=== PATIENT | female | born 1990 | race Caucasian/White ===

== ENCOUNTER → 2018-03-25 13:57 | Outpatient (POV) | payer BC, SELFPAY | DX: Z00.00 Encounter for general adult medical examination without abnormal findings (principal) ==

== ENCOUNTER 2020-02-09 12:41 | Emergency (ER) | payer OTHER, SELFPAY ==
[2020-02-09 12:51] VITALS: BP 177/99; PULSE 91; RESP 20; TEMP 36.6; O2SAT 97; BMI 43.5
--- NOTE | 2020-02-09 12:58 | HMH.EDUTC ---
[facility] – [place] Disposition Clinical Impression: Exposure to COVID-19 virus Disposition: Home, Self-Care Condition on Discharge: Good Instructions: Preventing the Spread of Coronavirus Discharge Instructions Additional Instructions: Drink plenty of fluids. Take tylenol for pain or fever. Return if you begin to have difficulty breathing. Follow up with your regular doctor. GO TO THE ER FOR ANY WORSENING SYMPTOMS Referrals: Getachew Murphy MD [Primary Care Provider] - Time of Disposition: 12:59 Medical Decision Making - Medical Records Medical records reviewed: No: I reviewed the patient's medical records. - Pj Inquiry Pt receiving controlled substance: No Vital Signs: 02/09/20 12:51 02/09/20 13:02 Temperature 98 F 98 F Temperature Source Oral Oral Pulse Rate 91 H Pulse Rate [Radial] 91 H Respiratory Rate 20 20 Blood Pressure 177/99 H Blood Pressure [Right Arm] 177/99 H Blood Pressure Mean [Right Arm] 125 Blood Pressure Source Automatic Cuff Blood Pressure Source [Right Arm] Automatic Cuff Blood Pressure Position Sitting Blood Pressure Position [Right Arm] Sitting 02 Sat by Pulse Oximetry 97 Oxygen Delivery Method Room Air Room Air Orders (Tests/Meds): ORDERS Category Date Time Status Covid-19 Nasal PCR Sendout Doug Routine Lab 02/09/20 12:42 Received [facility] [place] HPI - General Stated complaint: wants covid test Time Seen by Provider: 02/09/20 12:58 Mode of Arrival: Ambulatory Source of Information: Patient Limitations: No Limitations Description of Symptoms (Recalled from Triage Doc. by RN): COVID test no symptoms HEENT Symptoms (Recalled from RN notes): No Resp Symptoms (Recalled from RN notes): No Skin Symptoms (Recalled from RN notes): No MS Symptoms (Recalled from RN notes): No Functional Status (Recalled from RN notes): wnl - History of Present Illness Provider Complaint: She wants to be tested for covid because she is going to be around members of her family soon. She denies any symptoms. - Related Data Home Medications Medication Instructions Recorded Confirmed escitalopram oxalate 20 mg tablet 30 mg PO DAILY tab 10/28/19 01/12/20 omeprazole 20 mg capsule,delayed 20 mg PO DAILY 10/28/19 01/12/20 release Previous Rx's Medication Instructions Recorded fluoxetine 10 mg capsule 10 mg PO DAILY #30 cap 08/27/20 fluconazole 150 mg tablet 150 mg PO Q3D 0 Days #2 tab 01/12/20 norgestimate 0.25 mg-ethinyl 1 tab PO DAILY 30 Days #30 tab 01/12/20 estradiol 35 mcg tablet terconazole 0.8 % vaginal cream 1 appful VAGINAL HS 3 Days #20 g 01/12/20 Allergies Allergy/AdvReac Type Severity Reaction Status Date / Time almond AdvReac Itching of Verified 01/12/20 14:07 lips/mouth - Worker's Comp Is this a Worker's Comp case?: No [facility] History - Hepatitis A Screen Drug use history?: No High risk sexual behaviors?: No History of sexually transmitted infection?: No Currently employed?: No Childcare worker?: No Do you have indoor plumbing?: Yes Do you have electricity?: Yes Attestation statement:: This patient has been screened for Hepatitis A risk factors. I have reviewed the patient's past medical history: Yes Other Surgeries: Yes: Other Amputation: No Fractures: No - Social History Smoking Status: Never smoker Alcohol Intake: never Alcohol Intake Frequency:: holidays/special occasions only Occupational Status: employed Family Hx:: Cancer, Diabetes, Thyroid Disorder ROS Obtained: Yes All systems reviewed & no additional complaints - Constitutional Constitutional: Reports system reviewed and no additional complaints, except as docu - Eyes Eyes: Reports system reviewed and no additional complaints, except as docu - ENT Ears, Nose, Mouth, and Throat: Reports system reviewed and no additional complaints, except as docu - Cardiovascular Cardiovascular: Reports system reviewed and no additional complaints, except as docu - Respirato
[2020-02-09 13:02] VITALS: BP 177/99; PULSE 91; RESP 20; TEMP 36.6; O2SAT 97
[2020-02-10 12:31] LABS: Covid-19 Nasal PCR Sendout Lex Not Detected
== END 2020-02-09 13:03 | disposition home or self-care (01) ==
PROVIDERS: Emergency Provider Nurse Practitioner Family; PCP Family Medicine
DX: Z20.828 Contact with and (suspected) exposure to other viral communicable diseases (principal)
CPT/HCPCS: 99201; U0004

== ENCOUNTER → 2020-04-12 13:45 | Outpatient (POV) | payer OTHER, SELFPAY | DX: Z00.00 Encounter for general adult medical examination without abnormal findings (principal) ==

== ENCOUNTER 2020-12-15 09:07 | Emergency (ER) | payer OTHER, SELFPAY ==
[2020-12-15 09:10] VITALS: BP 146/92; PULSE 88; RESP 19; TEMP 37; O2SAT 98; BMI 44.0
--- NOTE | 2020-12-15 09:32 | HMH.EDUTC ---
[facility] – [place] Disposition Clinical Impression: Sinusitis Qualifiers: Sinusitis location: unspecified location Chronicity: unspecified Qualified Code(s): J32.9 - Chronic sinusitis, unspecified Disposition: Home, Self-Care Condition on Discharge: Good Instructions: Sinusitis, DI for Sinusitis, DI for COVID-19 (Suspected or Confirmed ), Preventing the Spread of Coronavirus Discharge Instructions Additional Instructions: *Monitor Temp, Over the counter Motrin or Tylenol as directed/as needed Tylenol every 4 hours and Motrin every 6 hours (as long as your family doctor has told you that you can take it) for fever or pain. and straight to ER if unable to lower temp less than 101.0 after medication given *Warm salt water gargles may help to soothe the throat *Throat Lozenges *Warm fluids like tea with honey may help to soothe the throat *Sleep elevated *Humidifier/Vaporizer *Flonase 2 sprays in each nostril daily but be aware that it may take 2-3 days before you notice improvement Follow up IMMEDIATELY for new or worsening symptoms or no Noticeable improvement over the next 48-72 hours. 911 for difficulty breathing or swallowing You were tested for today for COVID19 your test result should be back in the next 24-48 hours, you was given handout instructions for checking your results on the [facility] portal to view your results if you have trouble logging on you may call the [facility] You was given a handout with instructions for Self Quarantine and Self isolation for while you wait on test results and what to do if they are positive If you are positive the Health Dept will be contacting you also Make sure to take your Vitamins Vit. C Vit D and Zinc if you can take them Prescriptions: Amoxicillin/Potassium Clav [Augmentin 875-125 Tablet] 1 tab PO Q12H 7 Days #14 tab Transmission Status: Pending to [facility] predniSONE [Deltasone 10mg tablet] 10 mg PO BID 5 Days #10 tab Transmission Status: Pending to [facility] Referrals: Getachew Murphy MD [Primary Care Provider] - As needed Forms: Work/School Release Time of Disposition: 09:43 Medical Decision Making - Pj Inquiry Pt receiving controlled substance: No Pj was queried for this patient: No Vital Signs: 12/15/20 09:10 Temperature 98.6 F Temperature Source Oral Pulse Rate [Right Brachial] 88 Respiratory Rate 19 Blood Pressure [Right Arm] 146/92 H Blood Pressure Mean [Right Arm] 110 Blood Pressure Source [Right Arm] Automatic Cuff Blood Pressure Position [Right Arm] Sitting 02 Sat by Pulse Oximetry 98 Oxygen Delivery Method Room Air - Lab Data Lab results reviewed: Yes: I reviewed the patient's lab results. Orders (Tests/Meds): ORDERS Category Date Time Status Covid-19 Nasal PCR ([facility] [place]) Routine Lab 12/15/20 09:16 Ordered [facility] [place] HPI - General Stated complaint: possible sinus inf/covid exposure Time Seen by Provider: 12/15/20 09:33 Mode of Arrival: Ambulatory Source of Information: Patient Limitations: No Limitations Description of Symptoms (Recalled from Triage Doc. by RN): PATIENT C/O BODY ACHES, HEADACHE, AND SINUS PRESSURE LAST NIGHT. EXPOSED TO COVID 15 DAYS AGO HEENT Symptoms (Recalled from RN notes): Yes Resp Symptoms (Recalled from RN notes): No Skin Symptoms (Recalled from RN notes): No MS Symptoms (Recalled from RN notes): No Functional Status (Recalled from RN notes): WNL - History of Present Illness Provider Complaint: Patient states that she started having sinus congestion over a week ago and has continued to get worse over the last few days States that she has been having sinus pain and pressure along with feeling full in her head with body aches and scratchy throat States that she was was exposed to COVID about 15 days ago - Related Data Home Medications Medication Instructions Recorded Confirmed Escitalopram Oxalate [Lexapro] 20 mg PO DAILY 12/15/20 12/15/20 Fluoxetine HCl [Prozac 10mg 10 mg PO DAILY 12/15/20
[2020-12-15 09:52] VITALS: BP 146/92; PULSE 88; RESP 19; TEMP 37; O2SAT 98
[2020-12-15 10:02] LABS: UTC Pregnancy Test, Urine Negative (Negative)
== END 2020-12-15 09:56 | disposition home or self-care (01) ==
PROVIDERS: Emergency Provider Nurse Practitioner; PCP Family Medicine
DX: U07.1 COVID-19 (principal); J32.9 Chronic sinusitis, unspecified
CPT/HCPCS: 81025; 99203; C9803; G0463; U0003; U0005

== ENCOUNTER 2020-12-21 20:01 | Emergency (ER) | payer OTHER, SELFPAY ==
[2020-12-21 20:02] VITALS: BP 153/98; PULSE 111; RESP 21; TEMP 36.9; O2SAT 96; BMI 45.7
--- NOTE | 2020-12-21 20:18 | XR_ITS ---
PROCEDURE INFORMATION: Exam: XR Chest Exam date and time: 12/21/2020 8:18 PM Age: 30 years old Clinical indication: Shortness of breath; Additional info: Covid positive; States she feels a rattle in her c TECHNIQUE: Imaging protocol: XR of the chest. Views: 2 views. COMPARISON: No relevant prior studies available. FINDINGS: Lungs: There are ill-defined amorphous infiltrates noted within both mid and lower lung zones. No evidence of pulmonary vascular congestion. Pulmonary volumes remain normal. Pleural spaces: Unremarkable. No pleural effusion. No pneumothorax. Heart/Mediastinum: Unremarkable. No cardiomegaly. Bones/joints: Unremarkable. IMPRESSION: There are subtle patchy interstitial infiltrates noted within both mid and lower lung zones. No evidence of pulmonary vascular congestion. Normal pulmonary volumes. No pleural effusions.
--- NOTE | 2020-12-21 20:20 | HMH.EDUTC ---
[facility] [place] Disposition Clinical Impression: COVID-19 Disposition: Home, Self-Care Condition on Discharge: Good Instructions: DI for COVID-19 (Suspected or Confirmed ) Additional Instructions: covid swab was sent to lab, call later today for results. self isolate until test results are known to be negative No sign of a bacterial infection. Likely viral. Viruses can take 7-14 days to run their course. Nasal saline and bulb syringe or nose Kym to remove nasal drainage to help with nasal congestion. Hard to eat, drink, sleep with nasal congestion so important to keep this cleaned out. Monitor temp. Tylenol or Motrin as needed for pain or fever Encourage fluids, water, Gatorade, Powerade, Pedialyte if infant/toddler/child Warm salt water gargles Warm fluids Sore throat lozenges Sleep elevated Humidifier/vaporizer Follow-up immediately for new or worsening symptoms or no noticeable improvement over the next 48-72 hours. finish steroids and start zpak Prescriptions: Azithromycin [Zithromax 250mg tab] 250 mg PO DIRECTED #6 tab Transmission Status: P[facility] Referrals: Getachew Murphy MD [Primary Care Provider] - Time of Disposition: 20:42 Medical Decision Making - Pj Inquiry Pt receiving controlled substance: No Vital Signs: 12/21/20 20:02 Temperature 98.5 F Temperature Source Oral Pulse Rate [Left Radial] 111 H Respiratory Rate 21 Blood Pressure [Left Arm] 153/98 H Blood Pressure Mean [Left Arm] 116 Blood Pressure Source [Left Arm] Automatic Cuff Blood Pressure Position [Left Arm] Sitting 02 Sat by Pulse Oximetry 96 Oxygen Delivery Method Room Air Orders (Tests/Meds): ORDERS Category Date Time Status XR chest 2V Stat Exams 12/21/20 20:18 Taken [facility] [place] HPI - General Chief complaint: Urgent [facility] Stated complaint: rattle in chest Time Seen by Provider: 12/21/20 20:20 Mode of Arrival: Ambulatory Source of Information: Patient Limitations: No Limitations Description of Symptoms (Recalled from Triage Doc. by RN): Pt advises that she tested positive for COVID on Friday and is now feeling a rattle in my chest and want to get it checked out . HEENT Symptoms (Recalled from RN notes): No Resp Symptoms (Recalled from RN notes): Yes (covid positive, feeling a rattle in chest) Skin Symptoms (Recalled from RN notes): No MS Symptoms (Recalled from RN notes): No Functional Status (Recalled from RN notes): n/a - History of Present Illness Provider Complaint: 30 yr old female presnets for rattling in chest. pt states she tested positive for covid on friday and today noticed she had a rattling noise in chest. denies soa, or pain - Related Data Home Medications Medication Instructions Recorded Confirmed Escitalopram Oxalate [Lexapro] 20 mg PO DAILY 12/15/20 12/15/20 Fluoxetine HCl [Prozac 10mg 10 mg PO DAILY 12/15/20 12/15/20 Capsule] norgestimate-ethinyl estradioL 1 each PO DAILY 12/15/20 12/15/20 [Hilaria 0.25-0.035 mg Tablet] Previous Rx's Medication Instructions Recorded Amoxicillin/Potassium Clav 1 tab PO Q12H 7 Days #14 tab 12/15/20 [Augmentin 875-125 Tablet] predniSONE [Deltasone 10mg tablet] 10 mg PO BID 5 Days #10 tab 12/15/20 Azithromycin [Zithromax 250mg 250 mg PO DIRECTED #6 tab 12/21/20 tab] Allergies Allergy/AdvReac Type Severity Reaction Status Date / Time almond AdvReac Itching of Verified 01/12/20 14:07 lips/mouth - Worker's Comp Is this a Worker's Comp case?: No H History - Hepatitis A Screen Drug use history?: No High risk sexual behaviors?: No History of sexually transmitted infection?: No Currently employed?: No Childcare worker?: No Do you have indoor plumbing?: Yes Do you have electricity?: Yes Attestation statement:: This patient has been screened for Hepatitis A risk factors. I have reviewed the patient's past medical history: Yes Other Surgeries: Yes: Other Amputation: No Fra
[2020-12-21 20:49] VITALS: BP 153/98; PULSE 111; RESP 21; TEMP 36.9; O2SAT 96
== END 2020-12-21 20:51 | disposition home or self-care (01) ==
PROVIDERS: Emergency Provider Nurse Practitioner Family; PCP Family Medicine
DX: U07.1 COVID-19 (principal)
CPT/HCPCS: 71046; 99202; G0463

== ENCOUNTER 2021-01-07 10:05 | Emergency (ER) | payer OTHER, SELFPAY ==
[2021-01-07 11:32] VITALS: BP 146/89; PULSE 96; RESP 19; TEMP 37; O2SAT 99; BMI 45.7
[2021-01-07 12:02] LABS: Adenovirus,PCR Not Detected (NotDetected); Bordetella Pertussis Not Detected (NotDetected); Chlamydophila Pneumoniae, PCR Not Detected (NotDetected); Coronavirus 19, PCR Not Detected (NotDetected); Coronavirus 229E Not Detected (NotDetected); Coronavirus NL63 Not Detected (NotDetected); Coronavirus OC43 Not Detected (NotDetected); Coronovirus HKU1,PCR Not Detected (NotDetected); Human Metapneumovirus Not Detected (NotDetected); Influenza A, PCR Not Detected (NotDetected); Influenza AH1, 2009 Not Detected (NotDetected); Influenza AH1, PCR Not Detected (NotDetected); Influenza AH3,PCR Not Detected (NotDetected); Influenza B, PCR Not Detected (NotDetected); Mycoplasma Pneumoniae, PCR Not Detected (NotDetected); Parainfluenza 1, PCR Not Detected (NotDetected); Parainfluenza 2, PCR Not Detected (NotDetected); Parainfluenza 3, PCR Not Detected (NotDetected); Parainfluenza 4, PCR Not Detected (NotDetected); Respiratory Syncytial Virus Not Detected (NotDetected); Rhinovirus/Enterovirus Not Detected (NotDetected)
--- NOTE | 2021-01-07 12:04 | HMH.EDUTC ---
[facility] [place] Clinical Impression: Viral syndrome, Skin rash, Impetigo Disposition: Home, Self-Care Condition on Discharge: Good Instructions: DI for Impetigo, DI for Viral Syndrome, Methylprednisolone Additional Instructions: Stop the Amoxicillin. Start puting the mupirocin (bactroban) ointment on the place on your foot. Take the steroids as directed. Don't start them until tomorrow. Follow up with your primary care doctor. GO TO THE ER FOR ANY WORSENING SYMPTOMS OR CONCERNS Prescriptions: Brompheniramine/Pseudoephed/Dm [Bromfed Dm Cough Syrup] 5 ml PO Q6HP PRN #240 ml PRN Reason: Cough Transmission Status: Received by [facility] # Mupirocin [Bactroban 2% Ointment 22gm tube] 1 applicatio TP TID 7 Days #1 gm Transmission Status: Received by [facility] # methylPREDNISolone [Medrol] 4 mg PO DIRECTED 6 Days #21 packet Transmission Status: Received by [facility] # Azithromycin [Z-Abhilash 250mg Tab*] 250 mg PO UD DOSE PK #6 tab Transmission Status: Received by [facility] # Referrals: Getachew Murphy MD [Primary Care Provider] - Forms: Work/School Release Time of Disposition: 12:40 Medical Decision Making - Medical Records Medical records reviewed: No: I reviewed the patient's medical records. - Pj Inquiry Pt receiving controlled substance: No Vital Signs: 01/07/21 11:32 01/07/21 12:59 Temperature 98.6 F 98.6 F Temperature Source Oral Pulse Rate 96 H Pulse Rate [Left] 96 H Respiratory Rate 19 19 Blood Pressure 146/89 H Blood Pressure [Right Arm] 146/89 H Blood Pressure Mean [Right Arm] 108 02 Sat by Pulse Oximetry 99 - Lab Data Lab results reviewed: Yes: I reviewed the patient's lab results. Lab Results 01/07/21 12:00: Chlamy pneumoniae PCR Not detected, Adenovirus (PCR) Not detected, B. pertussis DNA (PCR) Not detected, Coronavirus OC43 (PCR) Not detected, Coronavirus HKU1 (PCR) Not detected, Coronavirus 229E (PCR) Not detected, SARS-CoV-2 (PCR) Not detected, Coronavirus NL63 (PCR) Not detected, Human Metapneumovir PCR Not detected, Influenza A (H1) PCR Not detected, Influ A (H1N1/09) PCR Not detected, Influenza A (H3) PCR Not detected, Influenza Type A (PCR) Not detected, Influenza Type B (PCR) Not detected, M. pneumoniae (PCR) Not detected, Parainfluenza 1 (PCR) Not detected, Parainfluenza 2 (PCR) Not detected, Parainfluenza 3 (PCR) Not detected, Parainfluenza 4 (PCR) Not detected, RSV (PCR) Not detected, Entero/Rhino (PCR) Not detected Orders (Tests/Meds): ED MEDICATIONS Discontinued Medications Generic Name Dose Route Start Last Admin Trade Name Abiodun PRN Reason Stop Dose Admin Methylprednisolone Sodium Succinate 125 mg 01/07/21 12:12 01/07/21 12:17 Methylprednisolone Sod Succ 125mg Vial IM 01/07/21 12:13 125 mg ONCE ONE Administration [facility] [place] - General Stated complaint: rash Time Seen by Provider: 01/07/21 12:05 Mode of Arrival: Ambulatory Source of Information: Patient Limitations: No Limitations Description of Symptoms (Recalled from Triage Doc. by RN): pt c/o stomach ache, nausea, congused, and runny nose HEENT Symptoms (Recalled from RN notes): Yes (nasal drainage) Resp Symptoms (Recalled from RN notes): No Skin Symptoms (Recalled from RN notes): No MS Symptoms (Recalled from RN notes): No Functional Status (Recalled from RN notes): confusion - History of Present Illness Provider Complaint: She c/o havign a rash basically all over her body since last night. She started running a fever yesterday and she has been feeling bad for a couple of days. She had covid-19 around 3 weeks ago, but she states that she was completely better from that for the past 10 days at least. She denies any shortness of breath. She does have a dry cough. - Related Data Home Medications Medication Instructions Recorded Confirmed Escitalopram Oxalate [Lexapro] 20 mg PO DAILY 12/15/20
[2021-01-07 12:59] VITALS: BP 146/89; PULSE 96; RESP 19; TEMP 37
== END 2021-01-07 13:04 | disposition home or self-care (01) ==
PROVIDERS: Emergency Provider Nurse Practitioner Family; PCP Family Medicine
DX: L01.00 Impetigo, unspecified (principal); B34.9 Viral infection, unspecified; Z20.822 Contact with and (suspected) exposure to COVID-19
CPT/HCPCS: 87581; 87632; 87798; 96372; 99202; C9803; G0463; U0003; U0005

== ENCOUNTER 2021-01-10 20:57 | Observation (INO) | payer OTHER, SELFPAY ==
[2021-01-10 20:57] VITALS: BP 163/113; PULSE 110; RESP 18; TEMP 37.1; O2SAT 96; BMI 41.5
[2021-01-10 21:04] VITALS: BP 163/113; PULSE 105; O2SAT 96
[2021-01-10 22:08] LABS: Alanine Aminotransferase 116 U/L (12-78); Albumin Level 3.9 g/dl (3.5-5.0); Albumin/Globulin Ratio 1.2 (1.1-1.8); Alkaline Phosphatase 63 U/L (38-126); Anion Gap 10.8 mEq/L (5-15); Aspartate Amino Transferase 76 U/L (14-36); Bilirubin,Total 0.5 mg/dl (0.2-1.3); Blood Urea Nitrogen 6 mg/dl (7-17); Calcium 9.3 mg/dl (8.4-10.2); Carbon Dioxide 25 mmol/L (22.0-30.0); Chloride 107 mmol/L (98-107); Creatinine Clearance Estimated 183 mL/min (50-200); Estimated Glomerular Filt Rate 186 ml/min (>60); GFR (African American) 225 ML/MIN (>60); Globulin 3.3 g/dL (1.3-3.2); Glucose 130 mg/dl (74-100); Potassium 3.8 mmoL/L (3.5-5.1); Sodium 139 mmol/L (136-145); Total Protein,Serum 7.2 g/dl (6.3-8.2)
[2021-01-10 22:13] LABS: C-Reactive Protein 84.4 mg/L (0-4)
[2021-01-10 22:20] LABS: Basophils % 1.2 % (0.1-2.0); Eosinophils % 2.4 % (0.1-12.0); Hematocrit 40.2 % (37.0-47.0); Lymphocytes # 0.6 K/mm3 (0.7-4.5); Lymphocytes % 40.5 % (10-50); Mean Corpuscular HGB Conc 32.3 g/dL (31.8-35.4); Mean Corpuscular Hemoglobin 28.2 pg (27.0-31.2); Mean Corpuscular Volume 87.4 fl (81-99); Mean Platelet Volume 9.7 fl (7.4-10.4); Monocytes # 0.1 K/mm3 (0.1-1.0); Monocytes % 3.8 % (1.7-9.3); Neutrophils # 0.8 K/mm3 (1.8-7.8); Neutrophils % 52.1 % (37.0-80.0); Red Blood Count 4.59 M/mm3 (4.20-5.40); Red Cell Distribution Width 15.1 % (11.5-17.5); White Blood Count 1.5 K/mm3 (4.8-10.8)
[2021-01-10 22:27] LABS: Platelet Count 41 K/mm3 (142-424)
--- NOTE | 2021-01-10 22:38 | XR_ITS ---
PROCEDURE INFORMATION: Exam: XR Chest Exam date and time: 01/10/2021 10:38 PM Age: 30 years old Clinical indication: Patient HX: Congestion, rash, recent strep, HX of covid TECHNIQUE: Imaging protocol: XR of the chest. Views: 2 views. COMPARISON: CR XR CHEST 2V 12/21/2020 8:14 PM FINDINGS: Lungs: Patchy left lung opacities appear improved compared to prior study. Patchy right lung opacities are unchanged to mildly improved. Pleural spaces: Unremarkable. No pleural effusion. No pneumothorax. Heart/Mediastinum: Unremarkable. No cardiomegaly. Bones/joints: Unremarkable. IMPRESSION: Patchy left lung opacities appear improved compared to prior study. Patchy right lung opacities are unchanged to mildly improved.
[2021-01-10 22:40] LABS: Erythrocyte Sedimentation Rate 61 mm/hr (0-20)
--- NOTE | 2021-01-10 23:07 | HMH.EDGENADL ---
ED Disposition Clinical Impression: Thrombocytopenia Neutropenia Qualifiers: Neutropenia type: unspecified Qualified Code(s): D70.9 - Neutropenia, unspecified Disposition: Admitted as Observation Condition on Discharge: Good - Critical Care Critical Care Time: No Attestation: On 01/10/21, the high probability of a clinically significant, sudden or life threatening deterioration of the following system(s) required my full and direct attention, intervention and personal management. The time I documented below is in addition to time spent performing reported procedures but includes the following listed in this critical care notation. Medical Decision Making - Medical Records Medical records reviewed: Yes: I reviewed the patient's medical records. - Pj Inquiry Pt receiving controlled substance: No Vital Signs: 01/10/21 20:57 01/10/21 21:04 01/10/21 23:31 Temperature 98.7 F Temperature Source Oral Pulse Rate 105 H 96 H Pulse Rate [Apical] 110 H Respiratory Rate 18 Blood Pressure 163/113 H 139/77 Blood Pressure [Right Arm] 163/113 H Blood Pressure Mean [Right Arm] 129 Blood Pressure Source [Right Arm] Automatic Cuff Blood Pressure Position [Right Arm] Sitting 02 Sat by Pulse Oximetry 96 96 97 Oxygen Delivery Method Room Air Room Air Room Air 01/11/21 00:01 01/11/21 00:31 Temperature Temperature Source Pulse Rate 95 H 99 H Pulse Rate [Apical] Respiratory Rate Blood Pressure 138/85 138/88 Blood Pressure [Right Arm] Blood Pressure Mean [Right Arm] Blood Pressure Source [Right Arm] Blood Pressure Position [Right Arm] 02 Sat by Pulse Oximetry 95 96 Oxygen Delivery Method Room Air Room Air - Lab Data Lab results reviewed: Yes: I reviewed the patient's lab results. Lab Results 01/10/21 21:27: Monoscreen Negative 01/10/21 21:27: Procalcitonin 0.098 01/10/21 21:27: PT 10.8, INR 0.95, APTT 23.3 01/10/21 21:47: WBC 1.5 L*, RBC 4.59, Hgb 13.0, Hct 40.2, MCV 87.4, MCH 28.2, MCHC 32.3, RDW 15.1, Plt Count 41 L*, MPV 9.7, Neut % (Auto) 52.1, Lymph % (Auto) 40.5, Granite % (Auto) 3.8, Eos % (Auto) 2.4, Baso % (Auto) 1.2, Neut # (Auto) 0.8 L*, Lymph # (Auto) 0.6 L, Granite # (Auto) 0.1, Eos # (Auto) 0.0, Baso # (Auto) 0.0, ESR 61 H 01/10/21 21:47: Sodium 139, Potassium 3.8, Chloride 107, Carbon Dioxide 25, Anion Gap 10.8, BUN 6 L, Creatinine 0.40 L, Estimated Creat Clear 183, Estimated GFR 186, Est GFR ( Amer) 225, Glucose 130 H, Calcium 9.3, Total Bilirubin 0.5, AST 76 H, ALT 116 H, Alkaline Phosphatase 63, C-Reactive Protein 84.4 H, Total Protein 7.2, Albumin 3.9, Globulin 3.3 H, Albumin/Globulin Ratio 1.2 01/10/21 23:24: Urine Color Red, Urine Appearance Cloudy, Urine pH 6.5, Ur Specific Morse 1.015, Urine Protein 1+, Urine Glucose (UA) Negative, Urine Ketones Negative, Urine Blood 3+, Urine Nitrate Negative, Urine Bilirubin Negative, Urine Urobilinogen 0.2, Ur Leukocyte Esterase Negative, Urine RBC Tntc, Urine WBC 10-20, Ur Squamous Epith Cells None, Urine Bacteria 1+ 01/10/21 23:43: Group A Strep Rapid Negative 01/10/21 23:43: SARS-CoV-2 (PCR) Not detected, Influenza A Untype (PCR) Not detected, Influenza Type B (PCR) Not detected Result diagrams: 01/10/21 21:47 01/10/21 21:47 Orders (Tests/Meds): ED MEDICATIONS Generic Name Dose Route Start Last Admin Trade Name Freq PRN Reason Stop Dose Admin Sodium Chloride 1,000 mls @ 999 mls/hr 01/10/21 21:45 01/10/21 22:10 Sod Chlor 0.9% 1000ml Bag IV 01/10/21 22:45 999 mls/hr .Q1H1M LYDIA Administration Sodium Chloride 8 ml 01/10/21 21:37 Sodium Chloride 0.9% 10ml Vial IV 02/09/21 21:36 NEEDED PRN dilute pepcid Discontinued Medications Generic Name Dose Route Start Last Admin Trade Name Freq PRN Reason Stop Dose Admin Diphenhydramine HCl 50 mg 01/10/21 21:35 01/10/21 22:09 Diphenhydramine 50mg/Ml Vial IV 01/10/21 21:36 50 mg ONCE ONE Administration Famotidine 20 mg
[2021-01-10 23:28] LABS: Microscopic, Urine URINE MICROSCOPIC (MICROSCOPIC)
[2021-01-10 23:30] LABS: Appearance,Urine CLOUDY (Clear); Bilirubin,Urine Negative (Negative); Blood, Urine 3+ (Negative); Color,Urine RED (Yellow); Glucose,Urine (UA) Negative (Negative); Ketones,Urine Negative (Negative); Leukocyte Esterase,Urine Negative (Negative); Nitrate,Urine Negative (Negative); PH,Urine 6.5 (5.0-8.5); Protein,Urine 1+ (Negative); Specific Gravity, Urine 1.015 (1.005-1.030); Urobilinogen,Urine 0.2 EU/dl (0.2)
[2021-01-10 23:31] VITALS: BP 139/77; PULSE 96; O2SAT 97
[2021-01-10 23:42] LABS: Bacteria,Urine 1+ /lpf; RBC,Urine TNTC #/hpf (0-3)
[2021-01-10 23:46] LABS: Coronavirus 19, PCR Not Detected (NotDetected); Influenza A, PCR Not Detected (NotDetected); Influenza B, PCR Not Detected (NotDetected)
[2021-01-10 23:54] LABS: Activated Partial Thrombo Time 23.3 seconds (22.8-30.6); INR 0.95 (0.9-1.1); Prothrombin Time 10.8 seconds (10.1-12.5)
[2021-01-11] VITALS (7 sets, daily range): BP systolic 125–150; BP diastolic 49–90; PULSE 76–99; RESP 17–22; TEMP 36.7–37; O2SAT 95–98; BMI 46.0
[2021-01-11 00:05] LABS: Monoscreen (Rapid) Negative (Negative)
[2021-01-11 00:07] LABS: Strep Scrn Group A (Rapid) Negative (Negative)
[2021-01-11 00:08] LABS: Procalcitonin 0.098 ng/mL (0.0-2.0)
--- NOTE | 2021-01-11 01:11 | PC.NURSE ---
brennon on phone with dr knapp @ this time
--- NOTE | 2021-01-11 02:38 | PC.NURSE ---
Patient is resting in bed. Report called to Jessie Monreal. rn
--- NOTE | 2021-01-11 03:14 | PC.NURSE ---
PT ARRIVED TO FLOOR VIA W/C FROM ED W/STAFF AT [id number]
--- NOTE | 2021-01-11 04:19 | PC.NURSE ---
Notified MD of Pt meeting sepsis criteria. No new orders.
--- NOTE | 2021-01-11 05:27 | PC.NURSE ---
UPON ASSESSMENT, PT NOTED TO HAVE RASH TO MOST HER BODY COVERING BLE, ARMS, CHEST, BACK OF SHOULDERS AND ON SOME OF HER BACK. pT STATES THAT SHE HAS BEEN TREATED FOR STREP AND HAS BEEN ON ZPACK AND STEROIDS. SHE ALSO C/O NECK DISCOMFORT. sHE HAS A SMALL WOUND ON HER INNER LEFT FOOT. VSS AT THIS TIME. MEDICATIONS ADMINISTERED PER MAY. WILL CONTINUE TO MONITOR.
[2021-01-11 06:13] LABS: Basophils % 0.5 % (0.1-2.0); Eosinophils % 0.7 % (0.1-12.0); Hematocrit 38.7 % (37.0-47.0); Hemoglobin 12.4 g/dL (12.2-16.2); Lymphocytes # 0.7 K/mm3 (0.7-4.5); Lymphocytes % 41.8 % (10-50); Mean Corpuscular Hemoglobin 28.1 pg (27.0-31.2); Mean Corpuscular Volume 88.1 fl (81-99); Mean Platelet Volume 10.6 fl (7.4-10.4); Monocytes % 2.1 % (1.7-9.3); Neutrophils # 0.9 K/mm3 (1.8-7.8); Red Blood Count 4.39 M/mm3 (4.20-5.40); Red Cell Distribution Width 15.2 % (11.5-17.5); White Blood Count 1.6 K/mm3 (4.8-10.8)
[2021-01-11 06:28] LABS: Platelet Count 46 K/mm3 (142-424)
--- NOTE | 2021-01-11 06:38 | PC.WOUNDNOTE ---
left inner foot
[2021-01-11 07:07] LABS: Alanine Aminotransferase 135 U/L (12-78); Albumin Level 3.6 g/dl (3.5-5.0); Albumin/Globulin Ratio 1.1 (1.1-1.8); Alkaline Phosphatase 51 U/L (38-126); Anion Gap 8.4 mEq/L (5-15); Aspartate Amino Transferase 93 U/L (14-36); Bilirubin,Total 0.3 mg/dl (0.2-1.3); Blood Urea Nitrogen 6 mg/dl (7-17); Calcium 8.7 mg/dl (8.4-10.2); Carbon Dioxide 27 mmol/L (22.0-30.0); Chloride 108 mmol/L (98-107); Creatinine Clearance Estimated 161 mL/min (50-200); Estimated Glomerular Filt Rate 186 ml/min (>60); GFR (African American) 225 ML/MIN (>60); Globulin 3.4 g/dL (1.3-3.2); Glucose 176 mg/dl (74-100); Potassium 4.4 mmoL/L (3.5-5.1); Sodium 139 mmol/L (136-145)
--- NOTE | 2021-01-11 07:32 | HMH.PHAVTE ---
[facility] Pharmacy VTE Monitoring - Patient Demographics Admission date: 01/10/21 Report Date: 01/11/21 Time: 07:32 Allergies/Adverse Reactions: Patient Allergies amoxicillin Allergy (Verified 01/10/21 21:17) almond Adverse Reaction (Verified 01/12/20 14:07) Itching of lips/mouth Height: 1.57 m Weight: 114.305 kg Patient Problems: Current Active Problems Thrombocytopenia (Acute) Neutropenia (Acute) - VTE Risk Labs: VTE Related Lab Results Hgb 12.4 g/dL (12.2-16.2) 01/11/21 05:47 Hct 38.7 % (37.0-47.0) 01/11/21 05:47 Plt Count 46 K/mm3 (142-424) L* 01/11/21 05:47 PT 10.8 seconds (10.1-12.5) 01/10/21 21:27 INR 0.95 (0.9-1.1) 01/10/21 21:27 APTT 23.3 seconds (22.8-30.6) 01/10/21 21:27 BUN 6 mg/dl (7-17) L 01/11/21 05:47 Creatinine 0.40 mg/dl (0.52-1.04) L 01/11/21 05:47 Estimated Creat Clear 161 mL/min (50-200) 01/11/21 05:47 Was VTE Risk Assessment Performed: Yes VTE Score: 2 VTE Risk Level: Very Low Risk - Prophylaxis VTE Prophylaxis Ordered?: Yes Types of VTE Prophylaxis: TEDS Knee High Location of Applied Device: Bilateral Lower Extremeties
--- NOTE | 2021-01-11 07:51 | HMH.PHAINT ---
CLARIFIED HOME MEDICATION LIST USING LIST FROM [facility]
--- NOTE | 2021-01-11 09:16 | HMH.HP ---
*Admission Date: 01/10/21 *Chief complaint: rash, fever *History of present illness: Ms. Rodrigues is a 30-year-old female with a history of anxiety, GERD, and shingles. She presented to the urgent treatment center on 12/15/2020 with symptoms of a sinus infection. She was given Augmentin and prednisone to take pending her Covid test. The Covid test returned positive. She presented back to the emergency room on 12/21/2020 because she was scared she had a pneumonia. She had a chest x-ray showing subtle patchy interstitial infiltrates within both mid and lower lung zones. She was then placed on Zithromax. She presented back to the emergency room on 01/07/2021 after developing a skin rash all over her body. She had begun running a fever and had not felt well for a few days. She felt she was completely better from Covid and this was something different. The physician felt she may be having an allergic reaction to Augmentin, therefore this was discontinued. She was started on Bactroban ointment for a blister that had developed on her foot and was told to continue her steroids. She had an upper respiratory panel which was all negative. She then presented back to the emergency room on 01/10/2021. She had developed a fever and the rash had spread to her arms and her chest. She was also having sinus and chest congestion. The patient's lab work revealed a low platelet count and a low white blood cell count. Her reticulocyte count was normal. The ER physician felt this could be post viral versus ITP. She was admitted for further evaluation and treatment. [facility] History I have reviewed the patient's past medical history: Yes Medical History: Reports:: Anxiety, Gastroesophageal Reflux Disease(GERD) Denies:: Cancer, Diabetes Mellitus Type 1, Diabetes Mellitus Type 2, MRSA *Have you ever received a pneumonia vaccine?: No *Have you received a flu vaccine this season?: Yes Other Surgeries: Yes: Other (tooth extraction, left eye) Amputation: No Fractures: No - *Social History Last grade of school completed: Some college Smoking Status: Never smoker Alcohol Intake: never Alcohol Intake Frequency:: holidays/special occasions only *Occupational Status:: employed Housing: house Household Members: family *Travel in the last 8 weeks: None Family Hx:: Anemia, Asthma, Cancer, Coronary Artery Disease, Diabetes, Heart Attack, Hyperlipidemia, Hypertension, Thyroid Disorder Review of Systems - Constitutional Reports fever(s), Reports weakness, Denies chills - Eyes Denies blurry vision, Denies double vision - ENT Reports nasal congestion, Reports sore throat - *Cardiovascular Denies chest pain, Denies shortness of breath - *Respiratory Reports chest congestion, Reports cough - *Gastrointestinal Reports nausea, Reports vomiting, Denies abdominal pain, Denies loose stools - *Genitourinary Denies difficulty urinating, Denies painful urination - *Musculoskeletal Denies joint pain - Integumentary/Breasts Reports rash - *Neurologic Reports weakness, Denies headache(s), Denies seizure-like activity, Denies dizziness Meds Home Medications Medication Instructions Recorded Confirmed Type Escitalopram Oxalate [Lexapro] 30 mg PO DAILY 12/15/20 01/11/21 History norgestimate-ethinyl estradioL 1 each PO DAILY 12/15/20 01/11/21 History [Hilaria 0.25-0.035 mg Tablet] Famotidine [Pepcid] 20 mg PO DAILY 01/11/21 01/11/21 History Mupirocin [Bactroban 2% Ointment 1 applicatio TP TID 01/11/21 01/11/21 History 22gm tube] Allergies Allergy/AdvReac Type Severity Reaction Status Date / Time amoxicillin Allergy Verified 01/10/21 21:17 almond AdvReac Itching of Verified 01/12/20 14:07 lips/mouth Exam Vital signs and Labs for Last 24 Hours: Temp Pulse Resp BP Pulse Ox 98.4 F 90 19 135/71 96 01/11/21 03:25 01/11/21 03:25 01/11/21 03:25 01/11/21 03:25 01/11/21 00:31 Laboratory Results - last 24 hr 01/10/21 21:27
--- NOTE | 2021-01-11 10:01 | HMH.ACPN2 ---
Internal Medicine - PN: Subj *Date: 01/11/21 *Time: 10:01 Interval history: Description of Symptoms (Recalled from ER Triage Doc. by RN): Patient states that Friday she had a fever. Friday she was seen at the [facility] when she developed a rash, she was treated for strep and given a zpack, a steroid shot and a topical cream for a wound on her right foot that she states looked infected. Patient states that currently the rash has spread to both of her legs and her arms and chest. States she also has sinus congestion, chest congestion, jaw pain with chewing, joint pain, as well as neck pain and feels flushed. Asks about resuming anxiety medications. She is on escitalopram AND fluoxetine. I will continue only the fluoxetine. Laboratory Tests 01/10/21 01/11/21 01/11/21 21:47 00:00 05:47 WBC 1.5 L* 1.6 L* Plt Count 41 L* 46 L* Neut # (Auto) 0.8 L* 0.9 L* Retic Count (auto) 1.0 Exam Vital signs and Labs for Last 24 Hours: Temp Pulse Resp BP Pulse Ox 98.4 F 90 19 135/71 96 01/11/21 03:25 01/11/21 03:25 01/11/21 03:25 01/11/21 03:25 01/11/21 00:31 Laboratory Results - last 24 hr 01/10/21 21:27: Monoscreen Negative 01/10/21 21:27: Procalcitonin 0.098 01/10/21 21:27: PT 10.8, INR 0.95, APTT 23.3 01/10/21 21:47: WBC 1.5 L*, RBC 4.59, Hgb 13.0, Hct 40.2, MCV 87.4, MCH 28.2, MCHC 32.3, RDW 15.1, Plt Count 41 L*, MPV 9.7, Neut % (Auto) 52.1, Lymph % (Auto) 40.5, [place] % (Auto) 3.8, Eos % (Auto) 2.4, Baso % (Auto) 1.2, Neut # (Auto) 0.8 L*, Lymph # (Auto) 0.6 L, [place] # (Auto) 0.1, Eos # (Auto) 0.0, Baso # (Auto) 0.0, ESR 61 H 01/10/21 21:47: Sodium 139, Potassium 3.8, Chloride 107, Carbon Dioxide 25, Anion Gap 10.8, BUN 6 L, Creatinine 0.40 L, Estimated Creat Clear 183, Estimated GFR 186, Est GFR ( Amer) 225, Glucose 130 H, Calcium 9.3, Total Bilirubin 0.5, AST 76 H, ALT 116 H, Alkaline Phosphatase 63, C-Reactive Protein 84.4 H, Total Protein 7.2, Albumin 3.9, Globulin 3.3 H, Albumin/Globulin Ratio 1.2 01/10/21 23:24: Urine Color Red, Urine Appearance Cloudy, Urine pH 6.5, Ur Specific [place] 1.015, Urine Protein 1+, Urine Glucose (UA) Negative, Urine Ketones Negative, Urine Blood 3+, Urine Nitrate Negative, Urine Bilirubin Negative, Urine Urobilinogen 0.2, Ur Leukocyte Esterase Negative, Urine RBC Tntc, Urine WBC 10-20, Ur Squamous Epith Cells None, Urine Bacteria 1+ 01/10/21 23:43: Group A Strep Rapid Negative 01/10/21 23:43: SARS-CoV-2 (PCR) Not detected, Influenza A Untype (PCR) Not detected, Influenza Type B (PCR) Not detected 01/11/21 00:00: Retic Count (auto) 1.0 01/11/21 05:47: WBC 1.6 L*, RBC 4.39, Hgb 12.4, Hct 38.7, MCV 88.1, MCH 28.1, MCHC 32.0, RDW 15.2, Plt Count 46 L*, MPV 10.6 H, Neut % (Auto) 55.0, Lymph % (Auto) 41.8, [place] % (Auto) 2.1, Eos % (Auto) 0.7, Baso % (Auto) 0.5, Neut # (Auto) 0.9 L*, Lymph # (Auto) 0.7, [place] # (Auto) 0.0 L, Eos # (Auto) 0.0, Baso # (Auto) 0.0 01/11/21 05:47: Sodium 139, Potassium 4.4, Chloride 108 H, Carbon Dioxide 27, Anion Gap 8.4, BUN 6 L, Creatinine 0.40 L, Estimated Creat Clear 161, Estimated GFR 186, Est GFR ( Amer) 225, Glucose 176 H D, Calcium 8.7, Total Bilirubin 0.3, AST 93 H, ALT 135 H, Alkaline Phosphatase 51, Total Protein 7.0, Albumin 3.6, Globulin 3.4 H, Albumin/Globulin Ratio 1.1 I & O for Last 24 hours: Intake & Output 01/08/21 01/09/21 01/10/21 01/11/21 11:59 11:59 11:59 11:59 Output Total 0 / 0 Balance 0 / 0 Weight 252 lb - *Routine HEENT Exam Head: Present: normocephalic Eye: Present: PERRL ENT: Present: mucous membranes moist - *Routine Neck Exam Present: supple. Absent: lymphadenopathy - *Routine Respiratory Exam Present: CTA bilaterally - *Routine Abdominal Exam Present: soft, normoactive bowel sounds. Absent: tenderness - *Routine Extremities Exam Absent: cyanosis, clubbing, edema - *Routine Skin Exam Present: warm, rash (petechial rash of extremities, less prominent on trunk.) - *Routine Neurological
--- NOTE | 2021-01-11 12:36 | HMH.CONS ---
*Admission Date: 01/10/21 *Reason for consult:: neutropenia/thrombocytopenia *History of present illness: 30 yo wf admitted with congestion, fever, rash. found to have neutropenia and thrombocytopenia on w/up. she reports she was dx with covid mid december- with mild sx. she did have fever. she has been on augmentin, zpack x 2 and prednisone x 2 in the past month for sinus drainage, congestion and sore on her toe. she has peticial rash on her lower ext that sometimes itches. her total wbc today is 1.6 hgb is normal plts 46K and anc is 900. esr and crp are elevated as are liver enzymes. she reports night sweats since covid dx. she denies h/o cytopenias in the past. [facility] History Medical History: Reports:: Anxiety, Gastroesophageal Reflux Disease(GERD) Denies:: Cancer, Diabetes Mellitus Type 1, Diabetes Mellitus Type 2, MRSA *Have you ever received a pneumonia vaccine?: No *Have you received a flu vaccine this season?: Yes Other Surgeries: Yes: Other (tooth extraction, left eye) Amputation: No Fractures: No - *Social History Last grade of school completed: Some college Smoking Status: Never smoker Alcohol Intake: never Alcohol Intake Frequency:: holidays/special occasions only *Occupational Status:: employed Housing: house Household Members: family *Travel in the last 8 weeks: None - Psychiatric History Pschychiatric History:: Reports:: Anxiety Family Hx:: Anemia, Asthma, Cancer, Coronary Artery Disease, Diabetes, Heart Attack, Hyperlipidemia, Hypertension, Thyroid Disorder Review of Systems - *Neurologic Reports weakness, Denies headache(s), Denies seizure-like activity, Denies dizziness Meds Home Medications Medication Instructions Recorded Confirmed Type Escitalopram Oxalate [Lexapro] 30 mg PO DAILY 12/15/20 01/11/21 History norgestimate-ethinyl estradioL 1 each PO DAILY 12/15/20 01/11/21 History [Hilaria 0.25-0.035 mg Tablet] Famotidine [Pepcid] 20 mg PO DAILY 01/11/21 01/11/21 History Mupirocin [Bactroban 2% Ointment 1 applicatio TP TID 01/11/21 01/11/21 History 22gm tube] Allergies Allergy/AdvReac Type Severity Reaction Status Date / Time amoxicillin Allergy Verified 01/10/21 21:17 almond AdvReac Itching of Verified 01/12/20 14:07 lips/mouth Exam Vital signs and Labs for Last 24 Hours: Temp Pulse Resp BP Pulse Ox 98.1 F 94 H 17 144/76 H 95 01/11/21 08:00 01/11/21 08:00 01/11/21 08:00 01/11/21 08:00 01/11/21 08:00 Laboratory Results - last 24 hr 01/10/21 21:27: Monoscreen Negative 01/10/21 21:27: Procalcitonin 0.098 01/10/21 21:27: PT 10.8, INR 0.95, APTT 23.3 01/10/21 21:47: WBC 1.5 L*, RBC 4.59, Hgb 13.0, Hct 40.2, MCV 87.4, MCH 28.2, MCHC 32.3, RDW 15.1, Plt Count 41 L*, MPV 9.7, Neut % (Auto) 52.1, Lymph % (Auto) 40.5, [place] % (Auto) 3.8, Eos % (Auto) 2.4, Baso % (Auto) 1.2, Neut # (Auto) 0.8 L*, Lymph # (Auto) 0.6 L, [place] # (Auto) 0.1, Eos # (Auto) 0.0, Baso # (Auto) 0.0, ESR 61 H 01/10/21 21:47: Sodium 139, Potassium 3.8, Chloride 107, Carbon Dioxide 25, Anion Gap 10.8, BUN 6 L, Creatinine 0.40 L, Estimated Creat Clear 183, Estimated GFR 186, Est GFR ( Amer) 225, Glucose 130 H, Calcium 9.3, Total Bilirubin 0.5, AST 76 H, ALT 116 H, Alkaline Phosphatase 63, C-Reactive Protein 84.4 H, Total Protein 7.2, Albumin 3.9, Globulin 3.3 H, Albumin/Globulin Ratio 1.2 01/10/21 23:24: Urine Color Red, Urine Appearance Cloudy, Urine pH 6.5, Ur Specific [place] 1.015, Urine Protein 1+, Urine Glucose (UA) Negative, Urine Ketones Negative, Urine Blood 3+, Urine Nitrate Negative, Urine Bilirubin Negative, Urine Urobilinogen 0.2, Ur Leukocyte Esterase Negative, Urine RBC Tntc, Urine WBC 10-20, Ur Squamous Epith Cells None, Urine Bacteria 1+ 01/10/21 23:43: Group A Strep Rapid Negative 01/10/21 23:43: SARS-CoV-2 (PCR) Not detected, Influenza A Untype (PCR) Not detected, Influenza Type B (PCR) Not detected 01/11/21 00:00: Retic Count (auto) 1.0 01/11/21 05:47: WBC 1.6 L*, RBC 4.39, H
--- NOTE | 2021-01-11 17:58 | PC.NURSE ---
Patient is non tele and on room air. Patient is up ad-joss. Patient has rash all over body, more prominent on lower extremities. Plan of care, continue neutropenic precautions. Bed in lowest position and phone and call light in reach.
--- NOTE | 2021-01-12 03:38 | PC.NURSE ---
no issues or complications noted through the nite. pt restarted on her home dose of pepcid for complaints of gerd, reflux with issues resolved after taking pepcid. not other concerns noted.
[2021-01-12 04:00] VITALS: BP 149/77; PULSE 93; RESP 16; TEMP 36.6; O2SAT 98
[2021-01-12 05:24] VITALS: BMI 47.0
[2021-01-12 05:56] LABS: Uric Acid 4.2 mg/dl (2.5-6.2)
[2021-01-12 06:56] LABS: MANUAL DIFFERENTIAL MANUAL DIFFERENTIAL (MANUAL DIFF)
[2021-01-12 07:11] LABS: HIV Screen 4th Generation wRfx Non Reactive (Non Reactive)
[2021-01-12 07:25] VITALS: BP 151/88; PULSE 81; RESP 24; TEMP 36.6; O2SAT 96
[2021-01-12 07:39] LABS: Basophils % 0.3 % (0.1-2.0); Eosinophils # 0.2 K/mm3 (0.0-0.4); Eosinophils % 6.8 % (0.1-12.0); Hematocrit 36.1 % (37.0-47.0); Hemoglobin 11.8 g/dL (12.2-16.2); Lymphocytes # 1.3 K/mm3 (0.7-4.5); Mean Corpuscular HGB Conc 32.7 g/dL (31.8-35.4); Mean Corpuscular Hemoglobin 28.5 pg (27.0-31.2); Mean Corpuscular Volume 87.1 fl (81-99); Mean Platelet Volume 10.9 fl (7.4-10.4); Monocytes # 0.2 K/mm3 (0.1-1.0); Monocytes % 8.1 % (1.7-9.3); Neutrophils # 0.7 K/mm3 (1.8-7.8); Neutrophils % 30.8 % (37.0-80.0); Platelet Count 67 K/mm3 (142-424); Red Blood Count 4.15 M/mm3 (4.20-5.40); Red Cell Distribution Width 15.3 % (11.5-17.5); White Blood Count 2.4 K/mm3 (4.8-10.8)
--- NOTE | 2021-01-12 08:40 | P.PN_ITS ---
Internal Medicine - PN: Subj *Date: 01/12/21 *Time: 08:40 Interval history: She states that she feels better. See the consult note by Dr. Carey. It is her feeling that COVID-19 is primarily responsible for her bone marrow suppression. It is encouraging that her white count has come up this morning. Her platelets have also increased. We will discharge her. She is cautioned about being exposed to infectious disease. She should consciously restrict her contacts. She has follow-up with Dr. Carey. She should see Dr. Murphy after that. Exam Vital signs and Labs for Last 24 Hours: Temp Pulse Resp BP Pulse Ox 97.8 F 81 24 151/88 H 96 01/12/21 07:25 01/12/21 07:25 01/12/21 07:25 01/12/21 07:25 01/12/21 07:25 Laboratory Results - last 24 hr 01/11/21 09:05: HIV 1&2 Ag/Ab, 4th Gen Non reactive 01/12/21 05:29: Uric Acid 4.2 01/12/21 05:29: WBC 2.4 L D, RBC 4.15 L, Hgb 11.8 L, Hct 36.1 L, MCV 87.1, MCH 28.5, MCHC 32.7, RDW 15.3, Plt Count 67 L D, MPV 10.9 H, Neut % (Auto) 30.8 L, Lymph % (Auto) 54.0 H, [place] % (Auto) 8.1, Eos % (Auto) 6.8, Baso % (Auto) 0.3, Neut # (Auto) 0.7 L*, Lymph # (Auto) 1.3, [place] # (Auto) 0.2, Eos # (Auto) 0.2, Baso # (Auto) 0.0 I & O for Last 24 hours: Intake & Output 01/09/21 01/10/21 01/11/21 01/12/21 11:59 11:59 11:59 11:59 Intake Total 1440 / 1440 Output Total 0 / 0 Balance 0 / 0 1440 / 1440 Weight 252 lb 255 lb 6.4 oz Microbiology Reports for the Last 24 Hours: Microbiology 01/10/21 23:24 Urine,Clean Catch Urine Culture - Final Multiple organisms, suggests contamination. - *Routine HEENT Exam Head: Present: normocephalic Eye: Present: EOMI, PERRL ENT: Present: mucous membranes moist - *Routine Neck Exam Present: supple. Absent: lymphadenopathy - *Routine Respiratory Exam Present: CTA bilaterally - *Routine Cardiovascular Exam Present: RRR - *Routine Abdominal Exam Present: soft, normoactive bowel sounds. Absent: tenderness - *Routine Extremities Exam Present: edema (Minimal). Absent: cyanosis, clubbing - *Routine Skin Exam Present: intact, petechiae - *Routine Neurological Exam Present: alert, oriented X3 Assessment and Plan (1) Neutropenia Status: Acute Qualifiers: Neutropenia type: unspecified Qualified Code(s): D70.9 - Neutropenia, unspecified Category: Medical Code(s): D70.9 - Neutropenia, unspecified (2) Thrombocytopenia Status: Acute Category: Medical Code(s): D69.6 - Thrombocytopenia, unspecified (3) History of COVID-19 Status: Acute Category: Medical Code(s): Z86.16 - Personal history of COVID- 19 (4) Blister of foot Status: Acute Category: Medical Code(s): S90.829A - Blister (nonthermal), unspecified foot, initial encounter (5) Anxiety Status: Acute Category: Medical Code(s): F41.9 - Anxiety disorder, unspecified - Assessment and plan all Dx Assessment and Plan for all problems:: Discharge. Follow-up with Dr. Carey in 1 week. Follow-up with Dr. Murphy thereafter. Avoid contacts that could expose her to infectious disease. C ontinue fluoxetine 40 mg. The escitalopram has been discontinued
--- NOTE | 2021-01-12 09:07 | PC.NURSE ---
patient ready for discharge to home today.
[2021-01-12 11:48] LABS: Eosinophils % 2 % (0-3); Lymphocytes % 53 % (10-50); Monocytes % 5 % (2-9); Neutrophils % 38 % (42-76); Platelet Estimate Moderate Decrease; Total Cells Counted 100
--- NOTE | 2021-01-12 14:34 | HMH.DCSUM ---
General - General Admission date:: 01/11/21 Discharge date: 01/12/21 HPI HPI: Ms. Rodrigues is a 30-year-old female with a history of anxiety, GERD, and shingles. She presented to the urgent treatment center on 12/15/2020 with symptoms of a sinus infection. She was given Augmentin and prednisone to take pending her Covid test. The Covid test returned positive. She presented back to the emergency room on 12/21/2020 because she was scared she had a pneumonia. She had a chest x-ray showing subtle patchy interstitial infiltrates within both mid and lower lung zones. She was then placed on Zithromax. She presented back to the emergency room on 01/07/2021 after developing a skin rash all over her body. She had begun running a fever and had not felt well for a few days. She felt she was completely better from Covid and this was something different. The physician felt she may be having an allergic reaction to Augmentin, therefore this was discontinued. She was started on Bactroban ointment for a blister that had developed on her foot and was told to continue her steroids. She had an upper respiratory panel which was all negative. She then presented back to the emergency room on 01/10/2021. She had developed a fever and the rash had spread to her arms and her chest. She was also having sinus and chest congestion. The patient's lab work revealed a low platelet count and a low white blood cell count. Her reticulocyte count was normal. The ER physician felt this could be post viral versus ITP. She was admitted for further evaluation and treatment. Hospital Course Hospital Course: The patient was admitted and started on IV fluids as well as Zofran and Tylenol. Her mono screen, strep screen, Covid test, and flu test were all negative. Her chest x-ray showed patchy left and right lung opacities which had improved compared to a previous study. Hematology/oncology was consulted and an HIV test was ordered at the patient's request. The HIV test was negative. She was seen in consultation by Dr. Carey who felt this was all likely viral and/or related to her Covid infection and would take several days for her blood counts to improve. She recommended sending a peripheral smear for path to review as well as ordering an LDH and uric acid. She wanted the patient to have a CBC early next week and if it worsens, she will need a bone marrow biopsy. By 01/12/2021, her white blood cell count had improved slightly and her platelets increased as well. She was cautioned about being exposed to any infectious disease and was discharged. She will follow-up with Dr. Carey as well as Dr. Murphy. Objective Vital signs: Temp Pulse Resp BP Pulse Ox 97.8 F 81 24 151/88 H 96 01/12/21 07:25 01/12/21 07:25 01/12/21 07:25 01/12/21 07:25 01/12/21 07:25 Narrative: - Constitutional no acute distress - *Routine HEENT Exam Head: Present: normocephalic Eye: Present: EOMI, PERRL ENT: Present: mucous membranes moist - *Routine Neck Exam Present: supple. Absent: lymphadenopathy - *Routine Respiratory Exam Present: CTA bilaterally - *Routine Cardiovascular Exam Present: RRR - *Routine Abdominal Exam Present: soft, normoactive bowel sounds. Absent: tenderness - *Routine Rectal Exam Rectal:: deferred - *Routine Genitalia Exam Genitalia:: deferred - *Routine Extremities Exam Absent: cyanosis, clubbing, edema - *Routine Skin Exam Present: petechiae (all over the entire body but worse on the bilateral lower extremities), warm. Absent: rash - *Routine Neurological Exam Present: alert, oriented X3 Results Labs on day of discharge: Labs from last 24 hours 01/12/21 01/12/21 01/11/21 05:29 05:29 09:05 WBC 2.4 L D RBC 4.15 L Hgb 11.8 L Hct 36.1 L MCV 87.1 MCH 28.5 MCHC 32.7 RDW 15.3 Plt Count 67 L D MPV 10.9 H Neut % (Auto) 30.8 L Lymph % (Auto) 54.0 H [place] % (Auto) 8.1
[2021-01-12 23:49] LABS: Peripheral Smear Review Scanned Result
[2021-01-14 05:50] LABS: Peripheral Smear Review Scanned Result
== END 2021-01-12 09:50 | disposition home or self-care (01) ==
LOC: ER 23:29 → 2ND 01-11 02:14
PROVIDERS: Internal Medicine Medical Oncology; Physician Assistant; Admitting Provider Family Medicine; Emergency Provider Emergency Medicine; PCP Family Medicine; Visit Provider Family Medicine
DX: D69.6 Thrombocytopenia, unspecified (principal); Z86.16 Personal history of COVID-19; D61.89 Other specified aplastic anemias and other bone marrow failure syndromes; R21 Rash and other nonspecific skin eruption; U09.9 Post COVID-19 condition, unspecified; Z20.822 Contact with and (suspected) exposure to COVID-19
CPT/HCPCS: 36415; 71046; 80053; 81001; 84145; 84550; 85007; 85014; 85018; 85025; 85044; 85048; 85049; 85610; 85651; 85730; 86140; 86318; 86703; 87040; 87086; 87430; 99283; C9803; G0378; G0432; U0003; U0005

== ENCOUNTER → 2021-01-19 13:33 | Outpatient (CLI) | payer OTHER, SELFPAY ==
[2021-01-19 14:47] LABS: Basophils # 0.1 K/mm3 (0-0.2); Basophils % 1.1 % (0.1-2.0); Eosinophils # 0.1 K/mm3 (0.0-0.4); Eosinophils % 0.8 % (0.1-12.0); Hematocrit 43.4 % (37.0-47.0); Hemoglobin 14.1 g/dL (12.2-16.2); Lymphocytes # 3.5 K/mm3 (0.7-4.5); Lymphocytes % 46.7 % (10-50); Mean Corpuscular HGB Conc 32.5 g/dL (31.8-35.4); Mean Corpuscular Hemoglobin 28.5 pg (27.0-31.2); Mean Corpuscular Volume 87.7 fl (81-99); Monocytes # 0.3 K/mm3 (0.1-1.0); Monocytes % 3.8 % (1.7-9.3); Neutrophils # 3.5 K/mm3 (1.8-7.8); Neutrophils % 47.6 % (37.0-80.0); Platelet Count 278 K/mm3 (142-424); Red Blood Count 4.95 M/mm3 (4.20-5.40); Red Cell Distribution Width 15.1 % (11.5-17.5); White Blood Count 7.4 K/mm3 (4.8-10.8)
== END ==
PROVIDERS: Visit Provider Internal Medicine Medical Oncology
DX: D64.9 Anemia, unspecified (principal)
CPT/HCPCS: 36415; 85025

== ENCOUNTER 2021-09-07 11:47 | Emergency (ER) | payer BC, SELFPAY ==
[2021-09-07 12:40] VITALS: BP 139/86; PULSE 95; RESP 19; TEMP 37.1; O2SAT 100; BMI 47.2
--- NOTE | 2021-09-07 13:18 | HMH.EDUTC ---
[facility] Disposition Clinical Impression: Exposure to COVID-19 virus, Viral syndrome Disposition: Home, Self-Care Condition on Discharge: Good Instructions: DI for COVID-19 (Suspected or Confirmed ), Preventing the Spread of Coronavirus Discharge Instructions, DI for Viral Upper Respiratory Infection -- Adult Additional Instructions: *Monitor Temp, Over the counter Motrin or Tylenol as directed/as needed Tylenol every 4 hours and Motrin every 6 hours (as long as your family doctor has told you that you can take it) for fever or pain. and straight to ER if unable to lower temp less than 101.0 after medication given *Warm salt water gargles may help to soothe the throat *Throat Lozenges *Warm fluids like tea with honey may help to soothe the throat *Sleep elevated *Humidifier/Vaporizer Follow up IMMEDIATELY for new or worsening symptoms or no Noticeable improvement over the next 48-72 hours. 911 for difficulty breathing or swallowing You were tested for today for COVID19 your test result should be back in the next 24-48 hours, you may check your results on the [facility] My Health Portal Make sure to take your Vitamins Vit. C Vit D and Zinc if you can take them Referrals: Getachew Murphy MD [Primary Care Provider] - As needed Forms: Work/School Release Time of Disposition: 13:23 Medical Decision Making - Pj Inquiry Pt receiving controlled substance: No Pj was queried for this patient: No Vital Signs: 09/07/21 12:40 Temperature 98.8 F Temperature Source Oral Pulse Rate [Right Brachial] 95 H Respiratory Rate 19 Blood Pressure [Right Arm] 139/86 Blood Pressure Mean [Right Arm] 103 Blood Pressure Source [Right Arm] Automatic Cuff Blood Pressure Position [Right Arm] Sitting 02 Sat by Pulse Oximetry 100 Oxygen Delivery Method Room Air Orders (Tests/Meds): ORDERS Category Date Time Status Covid-19 Nasal PCR ([facility]) Routine Lab 09/07/21 12:40 Received [facility] HPI - General Stated complaint: drainage,cough,congestion,headache Time Seen by Provider: 09/07/21 13:18 Mode of Arrival: Ambulatory Source of Information: Patient Limitations: No Limitations Description of Symptoms (Recalled from Triage Doc. by RN): PATIENT C/O COUGH, CONGESTION, SINUS DRAINAGE AND SORE THROAT X 4 DAYS HEENT Symptoms (Recalled from RN notes): Yes Resp Symptoms (Recalled from RN notes): Yes Skin Symptoms (Recalled from RN notes): No MS Symptoms (Recalled from RN notes): No Functional Status (Recalled from RN notes): WNL - History of Present Illness Provider Complaint: Patient states that she was recently around someone that was positive for COVID States that she has been having nasal congestion, stuffy nose and scratchy throat so she came in to get tested - Related Data Home Medications Medication Instructions Recorded Confirmed norgestimate-ethinyl estradioL 1 each PO DAILY 12/15/20 04/18/21 [Hilaria 0.25-0.035 mg Tablet] duloxetine 60 mg capsule,delayed 60 mg PO cap 04/18/21 04/18/21 release omeprazole 40 mg capsule,delayed 40 mg PO cap 04/18/21 04/18/21 release Previous Rx's Medication Instructions Recorded metronidazole 500 mg tablet 500 mg PO BID 14 Days #28 tab 04/18/21 Allergies Allergy/AdvReac Type Severity Reaction Status Date / Time amoxicillin Allergy Verified 04/18/21 11:24 almond AdvReac Itching of Verified 04/18/21 11:24 lips/mouth - Worker's Comp Is this a Worker's Comp case?: No [facility] History - Hepatitis A Screen Attestation statement:: This patient has been screened for Hepatitis A risk factors. I have reviewed the patient's past medical history: Yes Medical History: Reports:: Anxiety, Gastroesophageal Reflux Disease(GERD) Denies:: Cancer, Diabetes Mellitus Type 1, Diabetes Mellitus Type 2, MRSA Other Surgeries: Yes: Other Amputation: No Fractures: No - Social History Smoking Status: Never smoker Alcohol Intake: never Alcohol Intake Frequency:: holidays/
[2021-09-07 13:25] VITALS: BP 139/86; PULSE 95; RESP 19; TEMP 37.1; O2SAT 100
== END 2021-09-07 13:28 | disposition home or self-care (01) ==
PROVIDERS: Emergency Provider Nurse Practitioner; PCP Family Medicine
DX: J02.9 Acute pharyngitis, unspecified (principal); R51.9 Headache, unspecified; R09.81 Nasal congestion; Z20.822 Contact with and (suspected) exposure to COVID-19; K21.9 Gastro-esophageal reflux disease without esophagitis; F41.9 Anxiety disorder, unspecified; Z79.890 Hormone replacement therapy; Z88.0 Allergy status to penicillin; Z88.1 Allergy status to other antibiotic agents; Z88.3 Allergy status to other anti-infective agents; Z91.018 Allergy to other foods; Z82.5 Family history of asthma and other chronic lower respiratory diseases; Z80.9 Family history of malignant neoplasm, unspecified; Z82.49 Family history of ischemic heart disease and other diseases of the circulatory system; Z83.49 Family history of other endocrine, nutritional and metabolic diseases; Z83.438 Family history of other disorder of lipoprotein metabolism and other lipidemia; Z83.2 Family history of diseases of the blood and blood-forming organs and certain disorders involving the immune mechanism
CPT/HCPCS: 99213; C9803; G0463; U0003; U0005

== ENCOUNTER 2024-04-21 14:52 | Outpatient (CLI) | payer BC, SELFPAY ==
[2024-04-21 16:27] LABS: Potassium 4.5 mmoL/L (3.5-5.1)
== END 2024-04-21 23:59 | disposition home or self-care (01) ==
PROVIDERS: PCP Family Medicine; Visit Provider Family Medicine
DX: E87.5 Hyperkalemia (principal)
CPT/HCPCS: 36415; 84132

== ENCOUNTER 2024-06-26 10:09 | Outpatient (CLI) | payer BC, SELFPAY ==
[2024-06-26 11:14] LABS: Anion Gap 11.9 mEq/L (5-15); Blood Urea Nitrogen 21 mg/dl (7-17); Calcium 9.6 mg/dl (8.4-10.2); Carbon Dioxide 25 mmol/L (22.0-30.0); Chloride 107 mmol/L (98-107); Estimated Glomerular Filt Rate 114 ml/min (>60); GFR (African American) 138 ML/MIN (>60); Glucose 95 mg/dl (74-100); Potassium 4.9 mmoL/L (3.5-5.1); Sodium 139 mmol/L (136-145)
[2024-06-26 11:48] LABS: Hemoglobin A1C 6.1 % (4.0-6.0)
== END 2024-06-26 23:59 | disposition home or self-care (01) ==
LOC: LAB 10:11
PROVIDERS: PCP Family Medicine; Visit Provider Family Medicine
DX: E11.9 Type 2 diabetes mellitus without complications (principal)
CPT/HCPCS: 36415; 80048; 83036